=== PATIENT | female | born 1950 | race Caucasian/White ===

== ENCOUNTER → 2021-05-02 | Outpatient (CLI) | payer MEDICARE, BC ==
[~2021-05-02] MED LIST: AMOX-355 PO; ASPI-586 PO; ESTR1PAT92 TD; FAMO20TA45 PO; MULT-974 PO; OMG1KC PO; PRAV40TA2 PO; TIMO1DRO3 OP
--- NOTE | 2021-05-02 17:55 | Diagnostic Imaging Report ---
PROCEDURE: US Thyroid. TECHNIQUE: Multiple real-time grayscale images were obtained of the thyroid in various projections. INDICATION: Thyroid mass. FINDINGS: Right thyroid lobe measures 5.1 x 1.4 x 1.6 cm. There are scattered tiny subcentimeter 2-3 mm benign cysts. No suspicious mass. The left thyroid lobe measures 4.5 x 1.8 x 1.7 cm. It also has heterogeneous parenchyma with multiple predominantly cystic nodules. A solid lesion measured maximal 4 mm in the lower pole. No suspicious lesion. IMPRESSION: Tiny benign-appearing subcentimeter nodules, predominantly cystic. No suspicious mass. Dictated on workstation # [id number]
== END ==
LOC: RAD FS 11:45
PROVIDERS: ATTEND Nurse Practitioner
DX: E04.2 Nontoxic multinodular goiter (principal)
CPT/HCPCS: 76536